=== PATIENT | female | born 1995 | race Caucasian/White ===

== ENCOUNTER → 2023-06-09 08:24 | Outpatient (BNVA) | payer OTHER, SELFPAY | PROVIDERS: Visit Provider Physician Assistant Surgical ==

== ENCOUNTER 2023-06-30 11:48 | Outpatient (AMB) | payer OTHER, SELFPAY ==
--- NOTE | 2023-06-30 11:50 | A.OFFVIS_ITS ---
Intake VS Expanded 06/30/23 11:58 BP 119/70 Blood Pressure Location Rt brachial Blood Pressure Position Sitting Pulse 77 Pulse Source Pulse Oximeter Temp 96.8 F Temperature Source Temporal Artery Scan Pulse Oximetry 94 Oxygen Delivery Method Room Air Height 5 ft 5 in Weight 237 lb 3.2 oz BMI 39.5 Body Fat % 46.4 Body Fat Mass 110.0 Fat Free Mass 127.0 Visceral Fat Rating 10.0 Body Water % 38.6 Body Water Mass 91.4 Muscle Mass/Score 120.6 Basal Metabolic Rate/Score 1,842 Intake Visit Reasons: [employer] MWL BMI 38.9 Allergies No Known Allergies Allergy (Unverified 06/09/23 09:27) Medication List - Last Reconciled 06/30/23 by LUX Echevarria citalopram 40 mg PO DAILY norethindrone-e.estradiol-iron 1 mg-20 mcg (21)/75 mg (7) (04/23 ()) 1 tab PO DAILY polyethylene glycol 3350 (Miralax) 17 grams PO DAILY HPI HPI Comments History of Present Illness Details Pt is here to start the [facility] Weight Management medical weight loss program. Her goal is to lose weight and achieve a healthy lifestyle as well as to improve, if not resolve, obesity related medical conditions. Highest weight to date was 285. Current weight is 237.2 with a BMI of 39.5.? She has tried multiple methods of weight loss including Weight Watchers, calorie counting (lowest weight 160lbs) and OA without permanent results. She lives with her dad. 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 She wakes at: 9:30am, and goes to bed at 12:30am.? Dinner is at 7pm on days she works, tries to eat at home around the same time but sometimes around 6pm. Breakfast: 10am coffee with almond creamer, avocado toast with tomatoes or protein shake with yogurt/avocado/banana AM snack: tries not to Lunch: 1pm subscription [employer] meal service, 500-600 elissa per meal with 20g protein PM snack: another coffee, possibly from [employer] with milk and creamer Dinner: if at work- other half of lunch, if not at work- homemade tacos or other homemade meal After dinner: candy or other sweets, or fruit Other snacks: grapes Liquids: water- bought a new large water bottle recently, some carbonated drinks with Stevia Alcohol/marijuana/tobacco intake: no tobacco, no EtOH, no cannabis Exercise: has a membership to , starting to get back into weight training- 4- 5x/week has difficulty with both knees, cannot do high intensity/jumping otherwise they dislocate can use bike, treadmill, elliptical GERD score: 1 KIKA score: 2 ESS score: 2 QOL score: 54 Physical Exam Vital Signs: Last Vital Signs Temp 96.8 F 06/30/23 11:58 Pulse 77 06/30/23 11:58 BP 119/70 06/30/23 11:58 Pulse Ox 94 06/30/23 11:58 Oxygen Delivery Method Room Air 06/30/23 11:58 BMI result Body Mass Index 39.5 Const General: cooperative, comfortable and no acute distress Resp Effort & Inspection: normal respiratory effort Auscultation: clear to auscultation bilaterally Cardio Rate: regular rate Rhythm: regular rhythm GI Other: soft, nontender, nondistended, no hernias or masses, +BS Extrem General: Yes no calf tenderness and No edema Assessment & Plan Assessment & Plan (1) Obesity: Code(s): E66.9 - Obesity, unspecified Plan This is a 27 yo female who will start our MWL program.? ? Adequate sleep of 7-8 hours per night discussed. ?? Pt will purchase body composition analyzer scale (Jane Gu recommended) and check weight weekly. The best time to do this is first thing in the morning after going to the bathroom. 1. Nutritional counseling. 10am- Orgain shake, 2 scoops in 8oz unsweetened almond milk or can mix 2 scoops into 8oz coffee 1pm- Lithuanian yogurt with fruit 4pm- cheese stick +/- fruit/veg Dinner at 7pm- 8 forks/4 oz of protein and 8 forks/4oz of salad/vegetables. Meal to include lean meat (beef, fish, pork, turkey, chicken), cooked vegetables or a salad with olive oil and/or fruits (berries, pears, apples, kiwi). 9pm- 20g protein bar- ONE or Snickers brand okay Avoid salt, breads, potatoes, rice, pasta, desserts.? Try to drink 64 oz of water daily and avoid soda and juices. ?2. Each shake would be drunk slowly, like coffee in a period of 1-2 hours. Cut each bar in 4 pieces and eat each piece in 15-30 min to make each bar last 1-2 hours. Each meal should take 20-30 minutes to eat. ?3. The meal portions include 8 full-size forks of meat and 8 full-size forks of salad. You always eat the meat portion but you can replace up to half of the forks of salad/vegetables with rice, potatoes or pasta, or a fruit if you like. The less you do it the better weight loss will be. ?4. One full-size fork is what can be scooped on the fork without falling aside and not what can be bit with the fork. Use regular forks like those you find in a typical restaurant. ?5.? Please send me weight measurements once a week. Alternatively come weekly at the office for weight checks and send me the measurements. ?6. Ideas for gym exercises: Start treadmill with a speed of 2.0 and incline of 0, increasing incline by 1 every 3 minutes to the highest comfortable level then decrease in the same fashion.? Repeat process to a goal of 300 calories.? Alternatively, start elliptical with an incline of 2.0 and resistance of 4.0. Increase resistance by 1 every 3 min to a max resistance of 10.0, and repeat cycles for 300 calories. Goal of 2000 calories burned or more weekly.? Tracking calories is essential. 7. Alternatively start walking outside daily, tracking calories with a goal of 300 calories per day, daily. You can download the [employer] which can track you time, distance and calories while walking outside.? You press start in the manasa when you start and then stop when you are finished.?? 8. Goal is to lose at least 1.5-2lbs per week. Blood work ordered. Pt will be given access to [employer] videos. Emailed plan to pt and sent text message with my contact info to communicate between appointments. Pt will have next appt with me in 1 month. Patient is obese and is not considered stable at this time. I spent a total of 60 minutes reviewing/updating records, examining the patient and counseling the patient on weight management as detailed above. Orders: Orders Vitamin B12 and Folate Today E66.9 - Obesity, unspecified Zinc Today E66.9 - Obesity, unspecified Ferritin Today E66.9 - Obesity, unspecified Insulin Today E66.9 - Obesity, unspecified Hemoglobin A1c Today E66.9 - Obesity, unspecified Complete Blood Count Auto Diff Today E66.9 - Obesity, unspecified Lipid Panel Today E66.9 - Obesity, unspecified IRON PROFILE Today E66.9 - Obesity, unspecified Comprehensive Met. Panel Today E66.9 - Obesity, unspecified C Reactive Protein Today E66.9 - Obesity, unspecified Vitamin B1 Today E66.9 - Obesity, unspecified Vitamin A Today E66.9 - Obesity, unspecified TSH reflex Free T4 Today E66.9 - Obesity, unspecified Vitamin D 25-OH Total Today E66.9 - Obesity, unspecified Coding Level of Care Code New Pt Level 5 (08071) Diagnoses Obesity E66.9
[2023-06-30 11:58] VITALS: BP 119/70; PULSE 77; TEMP 36; O2SAT 94; BMI 39.5
== END 2023-06-30 13:04 | disposition home or self-care (01) ==
PROVIDERS: Visit Provider Physician Assistant Surgical
DX: E66.9 Obesity, unspecified (principal); Z68.39 Body mass index [BMI] 39.0-39.9, adult
CPT/HCPCS: 99205

== ENCOUNTER → 2023-06-30 11:48 | Outpatient (BNVA) | payer OTHER, SELFPAY | PROVIDERS: Visit Provider Physician Assistant Surgical | DX: E66.9 Obesity, unspecified (principal); Z68.39 Body mass index [BMI] 39.0-39.9, adult | CPT/HCPCS: 99202 ==

== ENCOUNTER 2023-08-01 09:51 | Outpatient (AMB) | payer OTHER, SELFPAY ==
--- NOTE | 2023-08-01 09:37 | A.OFFVIS_ITS ---
VS Expanded 08/01/23 09:53 Height 5 ft 5 in Weight 237 lb BMI 39.4 Intake Visit Reasons: (Telephone) MWL 4w F/U Allergies No Known Allergies Allergy (Unverified 06/09/23 09:27) Medication List - Last Reconciled 08/01/23 by LUX Echevarria citalopram 40 mg PO DAILY norethindrone-e.estradiol-iron 1 mg-20 mcg (21)/75 mg (7) (Junel FE 04/23 (28)) 1 tab PO DAILY polyethylene glycol 3350 (Miralax) 17 grams PO DAILY HPI Comments Details: Pt presents for [facility] followup. Visit #2. Starting weight/BMI: 237.2/39.5 Weight today: 237 Weight did go down to 234. Pt reports eating some more candy this past week. 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 Bought protein waffles, 24g protein for 2 waffles plus peanut butter. Trying to meal prep and be mindful of portions. Meal plan: 10am- Orgain shake, 2 scoops in 8oz unsweetened almond milk or can mix 2 scoops into 8oz coffee 1pm- Setswana yogurt with fruit 4pm- cheese stick +/- fruit/veg Dinner at 7pm- 8 forks/4 oz of protein and 8 forks/4oz of salad/vegetables. Meal to include lean meat (beef, fish, pork, turkey, chicken), cooked vegetables or a salad with olive oil and/or fruits (berries, pears, apples, kiwi). 9pm- 20g protein bar- ONE or Snickers brand okay Exercise: has tried to implement weight training 30 minutes, 2x/week, did some walking outside Telehealth Telehealth Telehealth Platform: Telephone Location of provider rendering services: practice address Location of patient: address on file Patient Identification confirmed using: Name, : Yes Telehealth method: voice only Patient verbally consented to treatment: Yes Patient verbally consented to billing insurance company: Yes Patient informed of any privacy concerns related to visit: Yes Minutes spent on Phone/Video with Pt.: 15 Assessment & Plan Assessment & Plan (1) Obesity: Code(s): E66.9 - Obesity, unspecified Category: Medical Plan Discussed watching portion sizes particularly of peanut butter; she sometimes wants a meal for breakfast instead of a shake which is okay, but pt is aware that weight loss will likely be slower. Encouraged starting cardio exercise in addition to weight training, 30 minutes or more. Reminded to have labs done. RTC 1 month. Patient is obese and is not considered stable at this time. I spent a total of 30 minutes reviewing/updating records, examining the patient and counseling the patient on weight management as detailed above.
[2023-08-01 09:53] VITALS: BMI 39.4
== END 2023-08-01 09:58 | disposition home or self-care (01) ==
LOC: HO.HBS 09:51
PROVIDERS: Visit Provider Physician Assistant Surgical
DX: E66.9 Obesity, unspecified (principal)
CPT/HCPCS: 99214

== ENCOUNTER → 2023-08-01 09:51 | Outpatient (BNVA) | payer OTHER, SELFPAY | PROVIDERS: Visit Provider Physician Assistant Surgical ==

== ENCOUNTER 2023-10-12 13:52 | Outpatient (AMB) | payer OTHER, SELFPAY ==
--- NOTE | 2023-10-12 13:39 | A.OFFVIS_ITS ---
VS Expanded 10/12/23 13:43 Height 5 ft 5 in Weight 233 lb 5 oz BMI 38.8 Intake Visit Reasons: Telephone MWL f/u Allergies No Known Allergies Allergy (Unverified 06/09/23 09:27) Medication List - Last Reconciled 10/12/23 by LUX Echevarria citalopram 40 mg PO DAILY norethindrone-e.estradiol-iron 1 mg-20 mcg (21)/75 mg (7) (Junel FE 04/23 (28)) 1 tab PO DAILY polyethylene glycol 3350 (Miralax) 17 grams PO DAILY HPI Comments Details: Pt presents for M[facility] followup. Visit #3. Starting weight/BMI: 237.2/39.5 Weight today: 233.5 Weight did go down to 226 at home since last visit. Pt reports better quality of food lately, whole foods- more salads, veg, monegasque yogurt dressings. Counting calories. Using milk instead of half and half in coffee. Trying to drink Propel instead of Diet Coke. Continues to struggle with being mindful of food choices at work. Sometimes will end up eating pizza, candy, hot chocolate, granola. Meal plan: 10am- Orgain shake, 2 scoops in 8oz unsweetened almond milk or can mix 2 scoops into 8oz coffee 1pm- Cameroonian yogurt with fruit 4pm- cheese stick +/- fruit/veg Dinner at 7pm- 8 forks/4 oz of protein and 8 forks/4oz of salad/vegetables. Meal to include lean meat (beef, fish, pork, turkey, chicken), cooked vegetables or a salad with olive oil and/or fruits (berries, pears, apples, kiwi). 9pm- 20g protein bar- ONE or Snickers brand okay Exercise: has tried to implement weight training 30 minutes, 2x/week, did some walking outside more 30-45min Telehealth Telehealth Telehealth Platform: Telephone Location of provider rendering services: practice address Location of patient: address on file Patient Identification confirmed using: Name, : Yes Telehealth method: voice only Patient verbally consented to treatment: Yes Patient verbally consented to billing insurance company: Yes Patient informed of any privacy concerns related to visit: Yes Minutes spent on Phone/Video with Pt.: 15 Assessment & Plan Assessment & Plan (1) Obesity: Code(s): E66.9 - Obesity, unspecified Category: Medical Plan Discussed being mindful of portion sizes, doing her best to meal prep and food shop. Try to minimize granola, hot chocolate etc and other low protein foods with high calories. Pt has increased cardio exercise, congratulated her on that. Reminded pt to have labs done. RTC 6 weeks. I spent a total of 30 minutes reviewing/updating records, examining the patient and counseling the patient on weight management as detailed above.
[2023-10-12 13:43] VITALS: BMI 38.8
== END 2023-10-12 13:54 | disposition home or self-care (01) ==
LOC: HO.HBS 13:52
PROVIDERS: Visit Provider Physician Assistant Surgical
DX: E66.9 Obesity, unspecified (principal)
CPT/HCPCS: 99214

== ENCOUNTER → 2023-10-12 13:52 | Outpatient (BNVA) | payer OTHER, SELFPAY | PROVIDERS: Visit Provider Physician Assistant Surgical ==

== ENCOUNTER 2023-12-07 09:46 | Outpatient (AMB) | payer OTHER, SELFPAY ==
--- NOTE | 2023-12-07 09:35 | MHC.OFFVISWM ---
VS Expanded 12/07/23 09:36 Height 5 ft 5 in Weight 233 lb BMI 38.8 Intake Visit Reasons: TELEPHONE F/U MWL Allergies No Known Allergies Allergy (Unverified 06/09/23 09:27) Medication List - Last Reconciled 12/07/23 by LUX Echevarria citalopram 40 mg PO DAILY norethindrone-e.estradiol-iron 1 mg-20 mcg (21)/75 mg (7) (Junel FE 04/23 (28)) 1 tab PO DAILY polyethylene glycol 3350 (Miralax) 17 grams PO DAILY HPI Comments Details: Pt presents for M[facility] followup. Visit #4. Starting weight/BMI: 237.2/39.5 Weight at last visit: 233.5 Weight today: 233/38.8 Total weight change: -4.2lbs Pt reports she lost her health insurance last month, feels that she was off track with every aspect , working more, started back at school ([employer] program). Was still trying to eat more quality foods, did give into some cravings but tried to be mindful of portions. Counting calories. Pt reports better quality of food lately, whole foods- more salads, veg, macedonian yogurt dressings. Counting calories. Using milk instead of half and half in coffee. Trying to drink Propel instead of Diet Coke. Meal plan: 10am- Orgain shake, 2 scoops in 8oz unsweetened almond milk or can mix 2 scoops into 8oz coffee 1pm- Hungarian yogurt with fruit 4pm- cheese stick +/- fruit/veg Dinner at 7pm- 8 forks/4 oz of protein and 8 forks/4oz of salad/vegetables. Meal to include lean meat (beef, fish, pork, turkey, chicken), cooked vegetables or a salad with olive oil and/or fruits (berries, pears, apples, kiwi). 9pm- 20g protein bar- ONE or Snickers brand okay has not been having many protein bars, sometimes will skip shake and drink coffee instead; then got a UTI so was having some cranberry juice now trying to drink coffee with shake, or will have protein waffles with grapes Exercise: has tried to implement weight training 30 minutes, 2x/week, did some walking outside more 30-45min was working 12 hour shifts this month but made sure she walked a mile every day Telehealth Telehealth Telehealth Platform: Telephone Location of provider rendering services: other Location of patient: address on file Patient Identification confirmed using: Name, : Yes Telehealth method: voice only Patient verbally consented to treatment: Yes Patient verbally consented to billing insurance company: Yes Patient informed of any privacy concerns related to visit: Yes Minutes spent on Phone/Video with Pt.: 15 Assessment & Plan Assessment & Plan (1) Obesity: Code(s): E66.9 - Obesity, unspecified Category: Medical Plan Pt can have a meal at lunchtime similar to dinner, does not want protein bar anymore, have yogurt after dinner instead. Pt reminded to have labs done. RTC 6 weeks. I spent a total of 30 minutes reviewing/updating records, examining the patient and counseling the patient on weight management as detailed above.
[2023-12-07 09:36] VITALS: BMI 38.8
== END 2023-12-07 09:57 | disposition home or self-care (01) ==
LOC: HO.HBS 09:46
PROVIDERS: Visit Provider Physician Assistant Surgical
DX: E66.9 Obesity, unspecified (principal)
CPT/HCPCS: 99214

== ENCOUNTER → 2023-12-07 09:46 | Outpatient (BNVA) | payer OTHER, SELFPAY | PROVIDERS: Visit Provider Physician Assistant Surgical ==

== ENCOUNTER 2024-01-02 07:59 | Outpatient (REF) | payer OTHER, SELFPAY ==
[2024-01-02 08:27] LABS: MANUAL DIFF FLAG NO
[2024-01-02 08:30] LABS: Basophils Absolute Auto 0.1 X10*3/uL (0.0-0.2); Eosinophils Absolute Auto 0.2 X10*3/uL (0.0-0.4); Eosinophils Percent Auto 3.7 % (0-4); Hemoglobin 14.9 g/dl (12.0-16.0); Imm Gran Abs Auto 0.02 X10*3/uL (0.00-0.03); Imm Gran Pct Auto 0.4 % (0.0-0.4); Lymphocytes Absolute Auto 2.2 X10*3/uL (1.2-4.9); Lymphocytes Percent Auto 44.4 % (20-40); Mean Corpuscular HGB Conc 34.7 g/dl (31.0-35.0); Mean Corpuscular Volume 89.6 fL (80.0-98.0); Mean Platelet Volume 8.6 fL (9.4-12.3); Monocytes Absolute Auto 0.4 X10*3/uL (0.1-1.2); Monocytes Percent Auto 8.8 % (2-11); Neutrophils Percent Auto 41.7 % (45-73); Platelet Count 209 X10*3/uL (160-400); Red Cell Distribution Width 11.6 % (11.0-16.0); White Blood Count 4.9 X10*3/uL (4.8-10.8)
[2024-01-02 08:42] LABS: Estimated Average Glucose 88 mg/dL; Hemoglobin A1c % 4.7 % (<6.0)
[2024-01-02 08:53] LABS: Alanine Aminotransferase 18 U/L (0-31); Albumin Level 4.1 g/dL (3.5-5.0); Alkaline Phosphatase 74 U/L (39-117); Anion Gap 13 (12-20); Aspartate Amino Transferase 17 U/L (5-31); Bilirubin Total 0.7 mg/dL (0.0-1.0); Blood Urea Nitrogen 11 mg/dL (9-16); C Reactive Protein 0.34 mg/dL (< or = 0.50); Calcium 9.8 mg/dL (8.4-10.2); Carbon Dioxide 24 mmol/L (22-29); Chloride 108 mmol/L (96-108); Cholesterol 182 mg/dL (<200); Estimated Glomerular Filt Rate > 60; Glucose Random 92 mg/dL (60-115); HDL Cholesterol 74 mg/dL (>40); Iron 129 mcg/dL (30-160); LDL Cholesterol Calculated 99 mg/dL (<100); Percent Iron Saturation 39 % (15-50); Potassium 3.9 mmol/L (3.3-5.1); Sodium 141 mmol/L (135-145); Total Iron Binding Capacity 333 mcg/dL (228-428); Triglycerides 46 mg/dL (<150); Unsaturated Iron Binding 204 ug/dL
[2024-01-02 09:08] LABS: Ferritin 32 ng/mL (10-122); Insulin 3 uU/mL (2-29); TSH reflex Free T4 1.75 uIU/mL (0.32-4.0); Vitamin D 25-OH Total 30.9 ng/mL (>30)
[2024-01-02 09:21] LABS: Folate 5.9 ng/mL (> or = 4.0); Vitamin B12 481 pg/mL (200-900)
[2024-01-05 18:28] LABS: Vitamin A 40 mcg/dL (38-98)
[2024-01-08 16:18] LABS: Vitamin B1 11 nmol/L (8-30)
== END 2024-01-02 08:00 | disposition home or self-care (01) ==
LOC: HO.LAB 07:59
PROVIDERS: Visit Provider Physician Assistant Surgical
DX: E66.9 Obesity, unspecified (principal); Z13.1 Encounter for screening for diabetes mellitus
CPT/HCPCS: 36415; 80053; 80061; 82306; 82607; 82728; 82746; 83036; 83525; 83540; 84425; 84443; 84590; 85025; 86140

== ENCOUNTER 2024-01-18 09:23 | Outpatient (AMB) | payer OTHER, SELFPAY ==
--- NOTE | 2024-01-18 09:10 | A.OFFVIS_ITS ---
VS Expanded 01/18/24 09:12 Height 5 ft 5 in Weight 234 lb 2 oz BMI 39.0 Intake Visit Reasons: TELEPHONE 6w f/u MWL Allergies No Known Allergies Allergy (Unverified 06/09/23 09:27) Medication List - Last Reconciled 01/18/24 by LUX Echevarria cholecalciferol (vitamin D3) 25 mcg PO DAILY citalopram 40 mg PO DAILY norethindrone-e.estradiol-iron 1 mg-20 mcg (21)/75 mg (7) (June FE 04/23 (28)) 1 tab PO DAILY polyethylene glycol 3350 (Miralax) 17 grams PO DAILY HPI Comments Details: Pt presents for M[facility] followup. Visit #5. Starting weight/BMI: 237.2/39.5 Weight at last visit: 233 Weight today: 234.2/39 Total weight change: 3lbs Was picking up a lot of extra shifts at work which messed up her sleep schedule- sleeping all day, binge eating late at night. Thinks her biggest struggle is going out with her friends- alcohol, making less healthier choices. Made 3 ingredient PB cookies, thought they were healthier, felt satisfied with them and it helped her sweet craving. Trying to eat more whole foods which she identifies as homemade meals, less processed foods. 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 Meal plan: 10am- Orgain shake, 2 scoops in 8oz unsweetened almond milk or can mix 2 scoops into 8oz coffee (has been using Atkins 15g) 1pm- Japanese yogurt with fruit 4pm- cheese stick +/- fruit/veg Dinner at 7pm- 8 forks/4 oz of protein and 8 forks/4oz of salad/vegetables. Meal to include lean meat (beef, fish, pork, turkey, chicken), cooked vegetables or a salad with olive oil and/or fruits (berries, pears, apples, kiwi). 9pm- 20g protein bar- ONE or Snickers brand okay Exercise: has tried to implement weight training 30 minutes, 2x/week, did some walking outside more 30-45min was working 12 hour shifts this month but made sure she walked a mile every day likes elliptical also Telehealth Telehealth Telehealth Platform: Telephone Location of provider rendering services: other Location of patient: address on file Patient Identification confirmed using: Name, : Yes Telehealth method: voice only Patient verbally consented to treatment: Yes Patient verbally consented to billing insurance company: Yes Patient informed of any privacy concerns related to visit: Yes Minutes spent on Phone/Video with Pt.: 15 Assessment & Plan Assessment & Plan (1) Obesity: Code(s): E66.9 - Obesity, unspecified Category: Medical Plan Pt wants to spend more time meal prepping which she thinks will help her busy schedule. Discussed the benefits of exercise, weight training. Focus on getting adequate protein, have protein/fruit/veg if she feels hungry. RTC 2-3 months. I spent a total of 30 minutes reviewing/updating records, examining the patient and counseling the patient on weight management as detailed above.
[2024-01-18 09:12] VITALS: BMI 39.0
== END 2024-01-18 09:28 | disposition home or self-care (01) ==
LOC: HO.HBS 09:23
PROVIDERS: Visit Provider Physician Assistant Surgical
DX: E66.9 Obesity, unspecified (principal)
CPT/HCPCS: 99214

== ENCOUNTER → 2024-01-18 09:23 | Outpatient (BNVA) | payer OTHER, SELFPAY | PROVIDERS: Visit Provider Physician Assistant Surgical ==

== ENCOUNTER 2024-03-29 11:55 | Outpatient (AMB) | payer OTHER, SELFPAY ==
--- NOTE | 2024-03-29 11:31 | MHC.OFFVISWM ---
Intake Visit Reasons: TV F/U MWL Allergies No Known Allergies Allergy (Unverified 06/09/23 09:27) Medication List - Last Reconciled 03/29/24 by LUX Echevarria cholecalciferol (vitamin D3) 25 mcg PO DAILY citalopram 40 mg PO DAILY norethindrone-e.estradiol-iron 1 mg-20 mcg (21)/75 mg (7) (04/23 (28)) 1 tab PO DAILY polyethylene glycol 3350 (Miralax) 17 grams PO DAILY HPI Comments Details: Starting weight/BMI: 237.2/39.5 Weight at last visit: 234.2 Weight today: 243.7 Total weight change: +9.5lbs Pt reports a few weeks ago she was 246lbs on her home scale. Had a karen that she was seeing tell her he wouldn't find her attractive anymore if she had loose skin, which bothered her and made her work harder at the gym. Has a break the next few weeks from school. Was eating more sweets at work ([employer]). Has been trying to cut out soda, introduced Gatorade Zero. Last appt with therapist was 3w ago. Meal plan: 10am- Orgain shake, 2 scoops in 8oz unsweetened almond milk or can mix 2 scoops into 8oz coffee (has been using Atkins 15g) 1pm- Kyrgyz yogurt with fruit 4pm- cheese stick +/- fruit/veg Dinner at 7pm- 8 forks/4 oz of protein and 8 forks/4oz of salad/vegetables. Meal to include lean meat (beef, fish, pork, turkey, chicken), cooked vegetables or a salad with olive oil and/or fruits (berries, pears, apples, kiwi). 9pm- 20g protein bar- ONE or Snickers brand okay Exercise: has tried to implement weight training 30 minutes, 2x/week, did some walking outside more 30-45min likes elliptical also Telehealth Telehealth Telehealth Platform: Telephone Location of provider rendering services: other Location of patient: address on file Patient Identification confirmed using: Name, : Yes Telehealth method: voice only Patient verbally consented to treatment: Yes Patient verbally consented to billing insurance company: Yes Patient informed of any privacy concerns related to visit: Yes Minutes spent on Phone/Video with Pt.: 16 Assessment & Plan Assessment & Plan (1) Obesity: Code(s): E66.9 - Obesity, unspecified Category: Medical Plan Pt wants to have some dark chocolate in evening. She think it will help her adhere to plan for the rest of the day. We discussed that it is extra calories and no protein. She will try this and make sure to add extra protein at afternoon snack- like have 20g protein bar instead of cheese stick. I suggested speaking to her PCP about whether she may be a candidate for GLP1 agonists. RTC 3 months. I spent a total of 30 minutes reviewing/updating records, examining the patient and counseling the patient on weight management as detailed above.
== END 2024-03-29 11:55 | disposition home or self-care (01) ==
LOC: HO.HBS 11:55
PROVIDERS: Visit Provider Physician Assistant Surgical
DX: E66.9 Obesity, unspecified (principal)
CPT/HCPCS: 99214

== ENCOUNTER → 2024-03-29 11:55 | Outpatient (BNVA) | payer OTHER, SELFPAY | PROVIDERS: Visit Provider Physician Assistant Surgical | DX: E66.9 Obesity, unspecified (principal) ==

== ENCOUNTER 2024-07-24 12:19 | Outpatient (AMB) | payer OTHER, SELFPAY ==
--- NOTE | 2024-07-24 12:10 | MHC.OFFVISWM ---
Intake Visit Reasons: TV F/U MWL Allergies No Known Allergies Allergy (Unverified 06/09/23 09:27) Medication List - Last Reconciled 07/24/24 by LUX Echevarria cholecalciferol (vitamin D3) 25 mcg PO DAILY citalopram 40 mg PO DAILY norethindrone-e.estradiol-iron 1 mg-20 mcg (21)/75 mg (7) ( FE 04/23 (28)) 1 tab PO DAILY polyethylene glycol 3350 (Miralax) 17 grams PO DAILY HPI Comments Details: Starting weight/BMI: 237.2/39.5 Weight at last visit: 243.7 Weight today: pt unsure Total weight change: -- Pt reports that she is 10 weeks with twins. Craving fruit, cheese, crackers, juice. Trying to eat more eggs. Meal plan: 10am- Orgain shake, 2 scoops in 8oz unsweetened almond milk or can mix 2 scoops into 8oz coffee (has been using Atkins 15g) 1pm- Amharic yogurt with fruit 4pm- cheese stick +/- fruit/veg Dinner at 7pm- 8 forks/4 oz of protein and 8 forks/4oz of salad/vegetables. Meal to include lean meat (beef, fish, pork, turkey, chicken), cooked vegetables or a salad with olive oil and/or fruits (berries, pears, apples, kiwi). 9pm- 20g protein bar- ONE or Snickers brand okay Exercise: 30 minute walk every day Telehealth Telehealth Telehealth Platform: Telephone Location of provider rendering services: practice address Location of patient: address on file Patient Identification confirmed using: Name, : Yes Telehealth method: voice only Patient verbally consented to treatment: Yes Patient verbally consented to billing insurance company: Yes Patient informed of any privacy concerns related to visit: Yes Minutes spent on Phone/Video with Pt.: 17 Assessment & Plan Assessment & Plan (1) Obesity: Code(s): E66.9 - Obesity, unspecified Category: Medical Plan Discussed maintaining protein goal of 100-110g/day. Discussed incorporating more whole foods, can make smoothies with protein powder. Goal weight gain 15-25lbs. Sent healthy foods handout and handout. Pt will call office once babies have been born and she is ready to restart her weight loss efforts.
== END 2024-07-24 12:30 | disposition home or self-care (01) ==
LOC: HO.HBS 12:19
PROVIDERS: Visit Provider Physician Assistant Surgical
DX: E66.9 Obesity, unspecified (principal); E66.812 Obesity, class 2; Z68.39 Body mass index [BMI] 39.0-39.9, adult
CPT/HCPCS: 98012

== ENCOUNTER → 2024-07-24 12:19 | Outpatient (BNVA) | payer OTHER, SELFPAY | PROVIDERS: Visit Provider Physician Assistant Surgical ==